=== PATIENT | male | born 2000 | race Caucasian/White ===

== ENCOUNTER 2021-09-16 01:43 | Observation (INO) | payer BC ==
[2021-09-16 03:38] VITALS: BMI 23.2
[2021-09-16] MEDS ORDERED: Famotidine/PF 20 mg/2ml Vial SLOW IVP SCH (04:34)
[2021-09-16] MEDS ORDERED: methylPREDNISolone Sod Succ/PF 125 MG/2 ML VIAL IVP SCH (04:34)
[2021-09-16] MEDS ORDERED: Acetaminophen 650 MG Suppository PR PRN (04:35)
[2021-09-16] MEDS ORDERED: Ondansetron ODT 4 MG TAB PO PRN (04:35)
[2021-09-16] MEDS ORDERED: Acetaminophen 325 MG TAB PO PRN (04:35)
[2021-09-16] MEDS ORDERED: Ondansetron PF 4 MG/2 ML Vial IVP PRN (04:35)
[2021-09-16 11:46] LABS: SARS-CoV-2 PCR by NAA Not Detected (NotDetected)
[2021-09-16] MEDS ORDERED: diphenhydrAMINE 25 MG CAP PO PRN (13:49)
[2021-09-16] MEDS ORDERED: Adacel (T-DAP) 0.5 ML SYRINGE IM ONE (14:03)
[2021-09-16] MEDS ORDERED: Acetaminophen/Codeine 30-300mg Tablet PO PRN (14:06)
[2021-09-16 14:55] LABS: #Lymphocytes 0.6 thou/uL (1.20-3.40); #Monocytes 0.1 thou/uL (0.11-0.59); #Neutrophils 5.3 thou/uL (1.40-6.50); %Basophils 0.3 % (0.0-1.0); %Eosinophils 0.1 % (0.0-10.0); %Lymphocytes 10.3 % (21.0-51.0); %Monocytes 1.1 % (0.0-10.0); %Neutrophils 88.2 % (42.0-75.0); Hemoglobin 15.8 g/dL (14.0-18.0); Mean Corpuscular HGB CONC 33.3 g/dL (32.0-36.0); Mean Corpuscular Hemoglobin 29.9 pg (27.0-31.0); Mean Corpuscular Volume 89.7 fL (78.0-98.0); Mean Platelet Volume 6.7 fL (7.4-10.4); Platelet Count 312 thou/uL (130-400); Red Blood Cell (RBC) Count 5.27 mill/uL (4.70-6.10)
[2021-09-16 15:04] LABS: INR-International Normal Ratio 1.1; PTT 29.4 sec (22.9-36.1); Prothrombin Time 13.8 sec (12.0-14.7)
[2021-09-16 15:16] LABS: ALT (SGPT) 21 U/L (8-55); AST (SGOT) 19 U/L (5-34); Albumin 4.5 g/dL (3.5-5.0); Alkaline Phosphatase 76 U/L (40-110); Anion Gap 15 mmol/L (10-20); BUN (Urea Nitrogen) 12 mg/dL (8.9-20.6); Bilirubin, Total 0.6 mg/dL (0.2-1.2); Calc. Creatinine Clearance 102 mL/min (70-130); Calcium 9.5 mg/dL (7.8-10.44); Carbon Dioxide 23 mmol/L (22-29); Chloride 103 mmol/L (98-107); Globulin 3.1 g/dL (2.4-3.5); Glucose 150 mg/dL (70-105); Potassium 4.8 mmol/L (3.5-5.1); Protein, Total 7.6 g/dL (6.0-8.3); Sodium 136 mmol/L (136-145)
[2021-09-16] MEDS: Famotidine 20 MG TAB PO SCH (20:01)
[2021-09-16] MEDS ORDERED: Loratadine 10 MG TAB PO SCH (21:00)
[2021-09-17 04:32] LABS: #Eosinphils 0.1 thou/uL (0.0-0.7); #Lymphocytes 1.7 thou/uL (1.20-3.40); #Monocytes 1.3 thou/uL (0.11-0.59); #Neutrophils 9.9 thou/uL (1.40-6.50); %Basophils 0.1 % (0.0-1.0); %Eosinophils 0.6 % (0.0-10.0); %Monocytes 10.2 % (0.0-10.0); %Neutrophils 76.1 % (42.0-75.0); Hemoglobin 14.7 g/dL (14.0-18.0); Mean Corpuscular Hemoglobin 29.6 pg (27.0-31.0); Mean Corpuscular Volume 89.7 fL (78.0-98.0); Mean Platelet Volume 6.9 fL (7.4-10.4); Platelet Count 272 thou/uL (130-400); RBC Distribution Width 12.1 % (11.5-14.5); Red Blood Cell (RBC) Count 4.95 mill/uL (4.70-6.10); White Blood Cell (WBC) Count 12.9 thou/uL (4.8-10.8)
[2021-09-17 04:37] LABS: INR-International Normal Ratio 1.1; PTT 28.7 sec (22.9-36.1); Prothrombin Time 14.3 sec (12.0-14.7)
[2021-09-17 04:49] LABS: ALT (SGPT) 17 U/L (8-55); AST (SGOT) 17 U/L (5-34); Albumin 4.1 g/dL (3.5-5.0); Alkaline Phosphatase 68 U/L (40-110); Anion Gap 12 mmol/L (10-20); BUN (Urea Nitrogen) 15 mg/dL (8.9-20.6); Bilirubin, Total 0.3 mg/dL (0.2-1.2); Calc. Creatinine Clearance 109 mL/min (70-130); Calcium 8.9 mg/dL (7.8-10.44); Carbon Dioxide 25 mmol/L (22-29); Chloride 106 mmol/L (98-107); Globulin 2.9 g/dL (2.4-3.5); Glucose 99 mg/dL (70-105); Potassium 3.7 mmol/L (3.5-5.1); Sodium 139 mmol/L (136-145)
[2021-09-17] MEDS: Famotidine 20 MG TAB PO SCH (09:08)
[2021-09-17 12:16] VITALS: BP 124/69; TEMP 98.1
[2021-09-17 12:18] LABS: INR-International Normal Ratio 1.1
[2021-09-17 12:30] LABS: PTT 28.9 sec (22.9-36.1)
== END 2021-09-17 13:54 | disposition home or self-care (01) ==
LOC: 2SW 01:43
PROVIDERS: ADMIT Student in an Organized Health Care Education/Training Program; ATTEND Internal Medicine
DX: T63.061A Toxic effect of venom of other North and South American snake, accidental (unintentional), initial encounter (principal); M79.672 Pain in left foot; M79.89 Other specified soft tissue disorders; L50.0 Allergic urticaria; T50.Z15A Adverse effect of immunoglobulin, initial encounter; D68.9 Coagulation defect, unspecified; F17.290 Nicotine dependence, other tobacco product, uncomplicated; Z20.822 Contact with and (suspected) exposure to COVID-19
CPT/HCPCS: 36415; 80053; 85025; 85384; 85610; 85730; 90472; 90715; 96374; 96375; G0378; J2930; S0028; U0003; U0005